=== PATIENT | female | born 1960 | race Caucasian/White ===

== ENCOUNTER 2022-04-07 14:09 | Emergency (ER) | payer BC, SELFPAY ==
[2022-04-07 14:10] VITALS: BMI 39.4
--- NOTE | 2022-04-07 14:33 | XRR_ITS ---
PROCEDURE INFORMATION: Exam: XR Right Hand Exam date and time: 04/07/2022 2:55 PM Age: 61 years old Clinical indication: Injury or trauma; Other: Cut on chair; Laceration; Right; Index finger TECHNIQUE: Imaging protocol: Radiologic exam of the Right hand. Views: 1 or 2 views. COMPARISON: No relevant prior studies available. FINDINGS: Bones/joints: There is amputation through the right distal 2nd phalanx. Soft tissues: No concerning radioopaque foreign bodies are identified. There is soft tissue injury of the distal right 2nd phalanx. XR/XR hand RT 2V [id number] IMPRESSION: There is amputation through the right distal 2nd phalanx.
--- NOTE | 2022-04-07 15:48 | W.ED.WOUNDLC ---
HPI - Wound/Laceration General: Chief Complaint: Wound/Laceration Stated Complaint: finger laceration Time Seen by Provider: 04/07/22 14:12 History of Present Illness: Patient comes in with a partial amputation of her right distal pointer finger. States she caught a bit over a chair at a restaurant. Associated symptoms: Denies fever(s), nausea or vomiting Review of Systems Const: Denies: fever(s) or body aches Eyes: Denies: change in vision or blurry vision ENMT: Denies: throat pain or odynophagia Card: Denies: chest pain or palpitations Resp: Denies: dyspnea or productive cough GI: Denies: abdominal pain, nausea or vomiting : Denies: flank pain or dysuria Musc: Denies: neck pain or back pain Skin/Breast: Denies: rash or pruritus Neuro: Denies: headache(s) or numbness in extremities Psych: Denies: anxiety or change in appetite Endo: Denies: polyuria or excessive sweating Physical Exam Const: COMMON NORMALS: no acute distress, patient oriented x3, healthy appearing and alert HENMT: COMMON NORMALS: normocephalic and atraumatic HEAD & SCALP: normocephalic and atraumatic Eye: COMMON NORMALS: Equal, round and reactive pupils present and EOMs intact bilaterally PUPIL: Yes Equal, round and reactive pupils present Neck/C-Spine: COMMON NORMALS: full ROM and supple Resp: COMMON NORMALS: normal respiratory effort, No retractions and No use of accessory muscles Cardio: COMMON NORMALS: regular rate and regular rhythm RATE: regular rate RHYTHM: regular rhythm GI: COMMON NORMALS: Normal to inspection, nondistended, normoactive bowel sounds present, Soft to palpation and non-tender PALPATION: Yes Soft to palpation Back/Pelvis: COMMON NORMALS: thoracic and lumbar spine normal to inspection and no thoracic nor lumbar tenderness Extremity: NARRATIVE EXTREMITY EXAM: Laceration through the proximal aspect of her right pointer finger nailbed with only the palmar aspect of the finger holding the detached piece together. The skin still appears viable and pink. Neuro: COMMON NORMALS: patient oriented x3 SENSORIUM/ORIENTATION: Yes alert Psych: COMMON NORMALS: mental status grossly normal and cooperative Skin: COMMON NORMALS: no rashes or lesions noted and no wounds GENERAL SKIN EXAM: no rashes or lesions noted Procedures Laceration Laceration 1: Site: other (Distal right pointer finger) Size (cm): 2.5 Description: other (Partial amputation of distal right pointer finger) Depth: [id number] Local Anesthetic: lidocaine 1% Amount of anesthesia used (mL): 7 Skin layer closed with: vicryl (5-0) Number of sutures: 8 Technique: simple, interrupted MDM - Wound/Laceration Medical Decision Making Patient comes in with a partial amputation of her right distal pointer finger. States she caught a bit over a chair at a restaurant. On physical exam she does have a wound through the proximal aspect of her nailbed with only the palmar aspect of the finger holding the detached piece together. The skin still appears viable and pink. After performing a digital block I was able to thoroughly clean the wound and reattach the fingertip. The nailbed was disrupted as well as the proximal aspect, however I did leave the fingernail on for wound cover temporarily. After reattaching the end of the finger I placed a bulky dressing with an aluminum finger splint. We will have her follow-up with hand surgery this coming week. Plan to discharge at this time with precautions return for worsening or changing symptoms. Lab Data Radiology Impressions Hand X-Ray 04/07/22 14:33 IMPRESSION: There is amputation through the right distal 2nd phalanx. Discharge Plan Discharge Patient Disposition: Home Clinical Impression: Traumatic amputation of tip of finger Condition: Stable Discharge Orders: Discharge ED (Routine); Ordered 04/07/22 Ordered By: Ludwig Higginbotham Referrals: Nai Hernandez MD [Primary Care Provider] - Activity Restrictions/Additional Instructions: Call Dr Chavez at [phone] to be seen in the hand surgery clinic Coding Level of Care Code ED Log Operations Coordinator for Yariel Wheeler
[2022-04-07] MEDS: tetanus-diphtheria tox (adult) 0.5 mL SDV IM (15:58)
[2022-04-07 16:32] VITALS: BP 153/83; PULSE 88; RESP 21; O2SAT 95
--- NOTE | 2022-04-09 09:34 | DCPLANNER ---
Addendum entered by Monica Quiles 04/26/22 14:39: Patient had a follow up appointment scheduled with ortho - patient did attend appointment. Addendum entered by Monica Quiles 04/10/22 08:50: Patient has a follow up appointment scheduled for Sunday, April 10, 2022 at 9:[address] Jacinto. Clinic will call patient with appointment information. Original Note: manager plan had message to schedule a follow up appointment for patient with ortho. manager plan sent patients information to the front office staff at ortho. Patients information will be printed and reviewed. Clinic will call patient with appointment information.
== END 2022-04-07 16:34 | disposition home or self-care (01) ==
PROVIDERS: Emergency Provider Emergency Medicine; PCP Pediatrics
DX: S68.120A Partial traumatic metacarpophalangeal amputation of right index finger, initial encounter (principal); W23.0XXA Caught, crushed, jammed, or pinched between moving objects, initial encounter; Z23 Encounter for immunization
CPT/HCPCS: 12001; 73120; 90471; 90714; 99283

== ENCOUNTER 2022-04-11 05:29 | Day surgery (SDC) | payer BC, SELFPAY ==
[2022-04-10 16:48] VITALS: BMI 39.4
[2022-04-11] VITALS (7 sets, daily range): BP systolic 153–179; BP diastolic 77–94; PULSE 56–70; RESP 17–20; TEMP 36.5; O2SAT 99–100
[2022-04-11] MEDS: sodium chloride 0.9% 1,000 ML 30 ML IV (06:34)
[2022-04-11] MEDS: acetaminophen 1,000 MG/100 ML PIGGYBACK 400 MG IV (06:35)
--- NOTE | 2022-04-11 06:42 | ANES.PREANE2 ---
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) Was Beta Saman taken within 24 hours: Yes Was Clonidine taken within 24 hours: N/A Last intake: Intake Last Liquid Date 04/10/22 Last Liquid Time 16:30 Last Solid Date 04/10/22 Last Solid Time 16:30 Social No alcohol and No tobacco Exam alert, oriented x 3, clear to auscultation bilaterally and regular rate & rhythm Airway Mallampati: Class III Dentition: full CV/HEM Hypertension Metabolic Morbid Obesity Neuropsych Seizure (epilepsy) Anesthetic Plan ASA status: 3 Anesthesia: MAC Risk of > 500 ml blood loss (7ml/kg in children): No Medications/Allergies Home Medications Medication Instructions Recorded Confirmed Last Taken Type clindamycin HCl 150 mg capsule 150 mg PO Q6H 7 days #28 caps 04/10/22 04/11/22 Unknown Rx hydrocodone 5 mg-acetaminophen 325 1 tab PO Q6H PRN pain 8 days #32 04/10/22 04/11/22 04/10/22 Rx mg tablet tabs lacosamide 50 mg tablet (Vimpat) 75 mg PO BID 04/10/22 04/11/22 04/10/22 History levetiracetam 500 mg tablet 1,000 mg PO BID 04/10/22 04/11/22 04/10/22 History metoprolol tartrate 25 mg tablet 12.5 mg PO BID 04/10/22 04/11/22 04/10/22 20:00 History montelukast 10 mg tablet 10 mg PO DAILY 04/10/22 04/11/22 04/10/22 History Allergies Allergy/AdvReac Type Severity Reaction Status Date / Time cephalexin Allergy Mild hives Verified 04/10/22 16:46 Current Medications Generic Name Dose Route Start Last Admin Trade Name Freq PRN Reason Stop Dose Admin Sodium Chloride 1,000 mls @ 30 mls/hr 04/11/22 06:00 04/11/22 06:34 Sodium Chloride 0.9% IV 04/12/22 05:59 30 mls/hr .Q24H DERIK Administration PFSH Anesthesia Medical History (Updated 04/11/22 @ 05:58 by Amanda Degroot) Injury of nail bed of finger of right hand Social History Smoking and tobacco status: never smoked Data Anesthesia Cardiac Studies: No Data to Display
[2022-04-11] MEDS: clindamycin 600 MG/50 ML PREMIX 100 MG IV (06:56)
--- NOTE | 2022-04-11 07:01 | W.PM.OPSUD ---
Surgery/Procedure H&P Update DATE OF PROCEDURE: April 11, 2022 DATE H&P PERFORMED: 04/10/22 CHANGES TO PREVIOUS DOCUMENTATION: None. Consent was updated to included Right index finger Irrigation and debridement which was signed by myself and the patient this morning. PREOP DIAGNOSIS: Traumatic partial amputation right index fingertip with nailbed injury PRIMARY INDICATION FOR PROCEDURE: Same PLANNED PROCEDURE: Operation Date: 04/11/22 07:00 Proposed Procedures p RIGHT INDEX FINGER NAIL BED REPAIR 68937,S68.119A(Right) - Pollo Jacinto DO
[2022-04-11] MEDS: lidocaine 1% INJ 50 mL 7 ML INJECTION (07:31)
--- NOTE | 2022-04-11 07:54 | PM.OP2 ---
Brief Operative Note Date of procedure: 04/11/22 Pre-op diagnosis: Right index finger nailbed injury Post-op diagnosis: same Procedure Done: Right index finger irrigation and debridement with nailbed repair Estimated blood loss (mL): 2 Complications: None Post-op Plan: Recover in PACU. Discharge home. Condition: stable Disposition: same day Coding Level of Care Code Acute Rubber Cutting Machine Tender for Yariel Wheeler
--- NOTE | 2022-04-11 07:56 | PM.OP ---
Operative Report Date of procedure: April 11, 2022 Pre-op diagnosis: Preop Diagnosis Traumatic partial amputation right index fingertip with nailbed injury Post-op diagnosis: same Post-op diagnosis: Same Post-op findings: See procedure note Procedure done: Right index finger irrigation and debridement with nailbed repair Implants: None Specimens removed/disposition: None Pathology: None Surgeon: Pollo Jacinto DO Estimated blood loss (mL): 2 Finger turnicot used 25min IV fluids: See anesthesia record Complications: None Findings: See procedure narrative Condition: stable Disposition: same day Brief History: Brenda presents yesterday after a traumatic fingertip partial amputation sustained over the weekend. She was seen evaluated in my clinic. She had a small volar area of soft tissue that had brisk capillary refill and blood flow to the distal fingertip. She was sutured in the ED and sent for follow-up with the orthopedic office. On my evaluation her nail is completely above the eponychial fold given the extent of the fracture seen on imaging suspect exposed bone with violation of nailbed. As result we have detailed discussion about nonoperative versus operative intervention. Patient was not placed on any antibiotics. This point patient was started on p.o. antibiotics given the extent of the nailbed injury would recommend right index finger irrigation debridement with nailbed repair. Patient understands risk benefits complications alternatives to the procedure. Risks include but are not limited to make it better make it worse, ischemia of the distal fingertip with potential revision amputation and multiple surgery, infection, finger stiffness. She understands his risks and agreed to proceed with surgical intervention. Consent was obtained in the office. Procedure: Patient seen evaluated in the preoperative holding area. Consent was reviewed with the patient and we added irrigation and debridement as part of the procedure given the open nature of this injury. She and I both signed this again. The correct extremity and finger was marked. Patient was evaluated by anesthesia. Taken to the operative suite on the [facility] and transferred to the OR table and secured and all bony prominences well-padded. Arm placed on an arm table. Underwent anesthesia per anesthesia department. Prior to surgical prep and drape final timeout was performed and the right index finger local block was performed with ropivacaine and lidocaine as a digital block to the right index finger under sterile aseptic technique. We then prepped and draped the right upper extremity in standard orthopedic fashion. Finger turnicot was applied to the right index finger. Sutures that were placed by the nail was subsequently removed all sutures of the laceration on the radial and ulnar side of the digit placed in the ED were left alone did not devitalize the distal fingertip. The nail was subsequently removed with a [place] atraumatically. At this point time I then evaluated an extensive complex laceration of the nailbed. Small amount of sterile matrix was gone at the central portion of the matrix. At this point irrigation and debridement was then performed irrigation with normal saline. Utilized pickups to remove all devitalized skin nail matrix and subcutaneous tissue. This measured roughly 1 cm x 1 cm x 1 cm in size. Wound bed thoroughly irrigated with bulb syringe. Once wound bed was cleaned then we performed my repair with 6-0 chromic on the radial and ulnar sides of the laceration. I then attempted to reapproximate the mid substance this sterile matrix however this was complex laceration and was not was threading through the tissue. As result utilized Dermabond glue over this area to create a smooth surface and reapproximate our nail matrix. This held up well. I then made 2 small slits in the eponychial fold and evaluated the germinal matrix which was intact. I then cut out a Xeroform cut this into the shape of the nail and slid this onto the eponychial fold. Slits in the eponychial fold were then sutured together with 4-0 chromic suture and the Xeroform was then sutured underneath the eponychial fold and held into place. Finger turnicot was then taken down. Distal tip of the fingertip regained perfusion with brisk capillary refill less than 2 seconds. A soft dressing was applied of Xeroform 4 x 4's Vivek wrap AlumaFoam finger splint for protection and Konrad wrap. Patient was then awakened from anesthesia and taken the PACU in stable condition. Disposition: Patient recovered in PACU. Patient to go home today. Continue p.o. antibiotics and pain medication as prescribed. Given appropriate discharge instructions. We will have her see therapy for a dressing change to begin range of motion next week. She will see me in office in 2 weeks.
--- NOTE | 2022-04-11 07:59 | SUR.PHASEI ---
0751 PT TO PACU 5 AWAKE ALERT ORIENTED X 3 WITH GOOD RESP NOTED ON RA, RT HAND AND FINGER FINGER TIPS, PINK WARM, IV TO LT HAND #20 IV NS 300 AT KVO RATE PER GRAVITY, ID BRACLET TO LT WRIST , PT ID'D WITH 2 IDENTIFIERS, RT HAND ELEVATED ON CHEST.
--- NOTE | 2022-04-11 12:18 | ANE.PACU2 ---
Inpatient post-anesthesia follow up: Airway intact: Yes Vital signs: Temperature 97.7 F Pulse Rate 56 Respiratory Rate 18 Blood Pressure 176/87 Pulse Oximetry 100 Oxygen Delivery Me thod Room Air Oxygen Flow Rate Fraction of Inspir ed Oxygen Hydration adequate: Yes Nausea and vomiting: No Pain level: 1 Mental status: Baseline
--- NOTE | 2022-04-11 13:43 | PM.PACU ---
PACU note Narrative: Patient seen and examined in PACU in stable condition. Dressing on place to right index finger. Dressings clean dry and intact. No issues at this time. Finger tip warm and perfused brisk capillary refill less than 2 seconds intraoperatively once finger turnicot was taken down prior to dressing applied. Exam: awake (See narrative for detailed exam) Disposition: discharged
== END 2022-04-11 09:02 | disposition home or self-care (01) ==
PROVIDERS: PCP Pediatrics; Visit Provider Student in an Organized Health Care Education/Training Program
PROC: 0HBQXZZ Excision of Finger Nail, External Approach (ICD-10-PCS; CPT 11750; principal; 2022-04-11 07:00)
DX: S68.120A Partial traumatic metacarpophalangeal amputation of right index finger, initial encounter (principal); W26.8XXA Contact with other sharp object(s), not elsewhere classified, initial encounter; I10 Essential (primary) hypertension; G40.909 Epilepsy, unspecified, not intractable, without status epilepticus; E66.01 Morbid (severe) obesity due to excess calories; Z68.39 Body mass index [BMI] 39.0-39.9, adult; Z88.1 Allergy status to other antibiotic agents
CPT/HCPCS: 11760; J2704; J2795; J3010; J3490; J7030

== ENCOUNTER 2022-04-19 06:00 | Outpatient (RCR) | payer BC, SELFPAY | END 2022-05-11 23:59 | disposition home or self-care (01) | LOC: MOT 06:00 | PROVIDERS: PCP Pediatrics; Visit Provider Student in an Organized Health Care Education/Training Program | DX: S69.91XD Unspecified injury of right wrist, hand and finger(s), subsequent encounter (principal); X58.XXXD Exposure to other specified factors, subsequent encounter | CPT/HCPCS: 97110; 97165; 97760 ==

== ENCOUNTER 2022-05-12 06:00 | Outpatient (RCR) | payer BC, SELFPAY | END 2022-06-11 23:59 | disposition home or self-care (01) | LOC: MOT 06:00 | PROVIDERS: PCP Pediatrics; Visit Provider Student in an Organized Health Care Education/Training Program | DX: S60.12 Contusion of index finger with damage to nail (principal); X58.XXXS Exposure to other specified factors, sequela | CPT/HCPCS: 97110; 97140; 97760 ==

== ENCOUNTER 2022-06-12 06:00 | Outpatient (RCR) | payer BC, SELFPAY | END 2022-06-26 23:59 | disposition home or self-care (01) | LOC: MOT 06:00 | PROVIDERS: PCP Pediatrics; Visit Provider Student in an Organized Health Care Education/Training Program | DX: S60.12 Contusion of index finger with damage to nail (principal); X58.XXXS Exposure to other specified factors, sequela | CPT/HCPCS: 97110; 97140 ==

== ENCOUNTER → 2022-06-28 09:46 | Outpatient (BNVA) | payer BC, SELFPAY | PROVIDERS: PCP Pediatrics; Visit Provider Student in an Organized Health Care Education/Training Program | DX: S61.300D Unspecified open wound of right index finger with damage to nail, subsequent encounter (principal); X58.XXXD Exposure to other specified factors, subsequent encounter | CPT/HCPCS: 73130 ==

== ENCOUNTER 2024-06-08 15:00 | Outpatient (CLI) | payer MEDICARE, OTHER, SELFPAY ==
--- NOTE | 2024-06-08 15:00 | XR_ITS ---
WS: [id number] DEXA (DUAL ENERGY X-RAY ABSORPTIOMETRY) Bone mineral density was performed using a [employer] machine. HISTORY: postmenopausal; screen for osteoporosis COMPARISON: None available. Lumbar spine BMD (L1-L4): 1.145 g/cm2 T score: -0.3 Z score: 0.1 Total hip BMD: Left: 0.815 g/cm2. T score: -1.5 Z score: -1.1 Right: 0.907 g/cm2. T score: -0.8 Z score: -0.4 10 year probability of a major osteoporotic fracture is 10.8%. XR/XR DEXA axial skeleton* [id number] IMPRESSION: OSTEOPENIA based upon the WHO classification for females.
== END 2024-06-08 15:01 | disposition home or self-care (01) ==
PROVIDERS: PCP Family Medicine; Visit Provider Family Medicine
DX: Z13.820 Encounter for screening for osteoporosis (principal); Z78.0 Asymptomatic menopausal state; M85.80 Other specified disorders of bone density and structure, unspecified site
CPT/HCPCS: 77080

== ENCOUNTER 2024-06-22 14:38 | Outpatient (CLI) | payer MEDICARE, OTHER, SELFPAY ==
--- NOTE | 2024-06-22 15:15 | MR_ITS ---
WS: [id number] MRI LUMBAR SPINE NONCONTRAST TECHNIQUE: Sagittal T1, T2 and STIR imaging. Axial T1 and T2 imaging. CLINICAL INFORMATION: hx of cauda equina and surgery 2020, symptoms returning COMPARISON: None. FINDINGS: Mild lumbar curve. No acute compression. Evidence of prior laminectomy defects in the lower lumbar sp ine. Shallow central protrusion T12-L1. L1-L2: Shallow RIGHT subarticular protrusion. Impingement RIGHT subarticular recess with mild central canal stenosis. Mild facet arthropathy. Foramen are patent. L2-L3: Mild annular bulging. Mild central canal stenosis with impingement subarticular recess bilater ally RIGHT greater than LEFT. Moderate facet arthropathy. Mild RIGHT foraminal narrowing. LEFT forame n is patent. L3-L4: Mild annular bulging. Moderate facet arthropathy. Slight narrowing of the subarticular recess bilaterally. Small LEFT foraminal protrusion with mild LEFT foraminal narrowing. L4-L5: Shallow central disc protrusion. Mild central canal stenosis. Impingement on the traversing LE FT greater than RIGHT L5 nerve roots. Mild LEFT foraminal narrowing. Moderate facet arthropathy. L5-S1: Laminectomy defects. Spinal canal has been decompressed. Moderate facet arthropathy. Eccentric disc bulging with mild bilateral foraminal narrowing and slight impingement on the exiting L5 nerve roots bilaterally. Tiny central protrusion with slight contact of the traversing S1 nerve roots bilat erally. Mild LEFT to RIGHT narrowing of the thecal sac. Visualized pelvic bony structures: Normal. Paravertebral soft tissues: Normal. Small central protrusion cervical spine journeyman pipe welder imaging C5-C6 with mild central canal stenosis. MR/MR lumbar spine wo con* [id number] IMPRESSION: 1. Mild lumbar curve. No acute compression. Prior laminectomy defects L5-S1. 2. RIGHT paracentral protrusion at L1-2 with mild central canal stenosis and i mpingement on the traversing RIGHT L2 nerve root. Mild central canal stenosis. 3. Mild central canal stenosis L2-3 with impingement on the RIGHT greater than LEFT traversing L3 nerve roots. 4. Mild annular bulge L3-4 with slight narrowing the subarticular recess bilat erally. Small LEFT foraminal protrusion with mild LEFT foraminal narrowing at t his level. 5. Annular bulge L4-5 impinges the traversing LEFT L5 nerve root in the subart icular recess. 6. Mild bilateral L5-S1 foraminal narrowing with slight contact of the exiting L5 nerve roots.
== END 2024-06-22 14:39 | disposition home or self-care (01) ==
LOC: RAD 14:38
PROVIDERS: PCP Family Medicine; Visit Provider Family Medicine
DX: G83.4 Cauda equina syndrome (principal); M47.816 Spondylosis without myelopathy or radiculopathy, lumbar region; M51.26 Other intervertebral disc displacement, lumbar region; M54.16 Radiculopathy, lumbar region; M51.360 Other intervertebral disc degeneration, lumbar region with discogenic back pain only; M47.896 Other spondylosis, lumbar region
CPT/HCPCS: 72148

== ENCOUNTER 2024-11-06 15:56 | Outpatient (CLI) | payer MEDICARE, OTHER, SELFPAY ==
--- NOTE | 2024-11-06 16:15 | US_ITS ---
WS: [id number] ULTRASOUND SOFT TISSUES RIGHT axilla HISTORY: M79.89 - Other specified soft tissue disorders COMPARISON: None available. TECHNIQUE: 2-D and color Doppler imaging is submitted. Prominent soft tissue in the RIGHT axilla corresponds to a normal soft tissue. This is most consistent with increased fat deposition. There is no lipoma or mass. No adenopathy. US/US soft tissue/extremity [id number] IMPRESSION: Negative ultrasound RIGHT axilla. No suspicious adenopathy.
== END 2024-11-06 15:57 | disposition home or self-care (01) ==
LOC: RAD 15:57
PROVIDERS: PCP Nurse Practitioner; Visit Provider Nurse Practitioner
DX: M79.89 Other specified soft tissue disorders (principal)
CPT/HCPCS: 76882